=== PATIENT | male | born 1975 | race Caucasian/White ===

== ENCOUNTER 2019-06-22 10:01 | Day surgery (SDC) | payer MEDICAID ==
[2019-06-22] VITALS (7 sets, daily range): BP systolic 125–158; BP diastolic 51–98
[~2019-06-22] VITALS: Ht 185.4 cm; Wt 84.0 kg
[~2019-06-22 10:01] MED LIST: ACET-1008 PO
[2019-06-22] MEDS ORDERED: cefazolin/dext.iso 2gm/100ml 100 ML IV ONE (10:45)
[2019-06-22] MEDS ORDERED: famotidine 20mg tablet PO ONE (10:45)
[2019-06-22] MEDS ORDERED: ringers solution, lacted 1,000 ML IV SCH ×2 (10:45→13:45)
[2019-06-22 11:48] LABS: ALBUMIN 3.9 G/DL (3.4-5.0); ALBUMIN/GLOBULIN RATIO 1.1 (1.1-1.5); ALKALINE PHOSPHATASE 52 IU/L (46-116); BLOOD UREA NITROGEN 11 MG/DL (7-18); BUN/CREATININE RATIO 13.6 (5.4-32.0); CALCIUM 8.7 MG/DL (8.5-10.1); CHLORIDE 105 MMOL/L (99-107); CREATININE 0.81 MG/DL (0.60-1.10); PRE OP ALT 30 U/L (30-65); PRE OP ANION GAP 8 (8-16); PRE OP AST 22 U/L (10-37); PRE OP BILIRUB, TOTAL 0.5 MG/DL (0.0-1.0); PRE OP GLUCOSE 93 MG/DL (70-104); PRE OP SODIUM 138 MMOL/L (135-145); TOTAL CARBON DIOXIDE 24.7 MMOL/L (24-32); TOTAL PROTEIN 7.4 G/DL (6.4-8.2); eGFR > 90 ML/MIN
[2019-06-22 11:52] LABS: PRE OP POTASSIUM 4.2 MMOL/L (3.4-5.1)
[2019-06-22 12:25] LABS: BASOPHILS % (AUTO) 0.4 % (0-1); EOSINOPHILS # (AUTO) 0.1 X10'3 (0-0.9); EOSINOPHILS % (AUTO) 0.8 % (0-6); LYMPHOCYTES # (AUTO) 1.8 X10'3 (1.1-4.8); LYMPHOCYTES % (AUTO) 18.9 % (21-51); MEAN CORPUSCULAR HEMOGLOBIN 31.5 PG (27.0-31.0); MEAN CORPUSCULAR HGB CONC 34.2 g/dL (33.0-36.5); MEAN CORPUSCULAR VOLUME 91.9 FL (78-98); MEAN PLATELET VOLUME 7.1 FL (7.4-10.4); MONOCYTES # (AUTO) 0.5 X10'3 (0-0.9); MONOCYTES % (AUTO) 5.5 % (2-12); NEUTROPHILS # (AUTO) 7.1 X10'3 (1.8-7.7); NEUTROPHILS % (AUTO) 74.4 % (42-75); PRE OP HEMATOCRIT 43.3 % (42.0-52.0); PRE OP HEMOGLOBIN 14.8 g/dL (14.0-17.9); PRE OP PLATELET COUNT 312 X10'3 (140-440); RED BLOOD COUNT 4.71 X10'6 (4.70-6.10); RED CELL DISTRIBUTION WIDTH 13.4 % (11.5-14.5)
[2019-06-22] MEDS ORDERED: BUPIVAcaine/PF 2.5 mg/ml (0.25%) 30ml vial ONE (13:07)
[2019-06-22] MEDS ORDERED: ceFAZolin 1000mg inj ONE (13:07)
[2019-06-22] MEDS ORDERED: midazolam 2 mg/2 ml injection ONE (13:19)
[2019-06-22] MEDS ORDERED: fentaNYL /PF 50mcg/ml 5ml ampule ONE (13:20)
[2019-06-22] MEDS ORDERED: LIDOcaine 2% 5ml jelly ONE (13:22)
[2019-06-22] MEDS ORDERED: LIDOcaine 2% (20mg/ml) 5ml vial ONE (13:35)
[2019-06-22] MEDS ORDERED: rocuronium 10mg/ml inj IV ONE (13:35)
[2019-06-22] MEDS ORDERED: propofol inj 20 ML IV ONE (13:35)
[2019-06-22] MEDS ORDERED: ondansetron/PF 4mg/2ml inj IV PRN (13:45)
[2019-06-22] MEDS ORDERED: meperidine/PF 25mg/ml syringe IV PRN ×3 (13:45)
[2019-06-22] MEDS ORDERED: acetaminophen 1,000mg/100ml IV 100 ML IV PRN (13:45)
[2019-06-22] MEDS ORDERED: morphine 4 MG/ML inj SYRINge IV PRN (13:45)
[2019-06-22] MEDS ORDERED: proCHLORperazine 10 MG/2 ml inj IV PRN (13:45)
[2019-06-22] MEDS ORDERED: morphine 2 MG/ML inj. syringe IV PRN (13:45)
[2019-06-22] MEDS ORDERED: morphine 10mg/ml inj. ONE (14:21)
--- NOTE | 2019-06-22 14:29 | NUR ---
Received from OR via [facility] , accompanied by Anesthesiologist ALLY and report given by Anesthesiolgist. PATIENT WITH 20G PIV IN RIGHT UE RUNNING LR. PATIENT WITH 2 ABDOMINAL LAP BANDAIDS THAT ARE CDI. VSS. DENIES PAIN. Addendum: 06/22/19 at 1440 by Trent Ford RN, RN Amended: Links added.
== END 2019-06-22 15:29 | disposition home or self-care (01) ==
LOC: PRE-OP 10:01
PROVIDERS: ATTEND Surgery
DX: K40.00 Bilateral inguinal hernia, with obstruction, without gangrene, not specified as recurrent (principal); F17.210 Nicotine dependence, cigarettes, uncomplicated; Z72.89 Other problems related to lifestyle
CPT/HCPCS: 36415; 49650; 80053; 85025; 93005; C1713; C1781; J0690; J2001; J2250; J2270; J2704; J3010; J3490; A4215; A4314; A4618; J7120